=== PATIENT | female | born 1990 | race Caucasian/White ===

== ENCOUNTER 2019-03-23 22:11 | Emergency (ER) | payer OTHER ==
[~2019-03-23] VITALS: Ht 157.5 cm; Wt 113.4 kg
[2019-03-23] MEDS ORDERED: DILTIAZEM ER180 M2 PO (22:26)
[2019-03-23] MEDS ORDERED: DULOXETINE HCL60 MG PO (22:27)
[2019-03-23] MEDS ORDERED: ROBAXIN 750 MG750 MG PO (22:27)
[2019-03-23 22:39] LABS: ABSOLUTE BASOPHILS 0.1 thou/uL (0.0-0.2); ABSOLUTE EOSINOPHILS 0.2 thou/uL (0.0-0.7); ABSOLUTE MONOCYTES 0.9 thou/uL (0.0-1.2); ABSOLUTE NEUTROPHILS 5.8 thou/uL (1.6-8.1); BASOPHILS 0.9 %; EOSINOPHILS 1.6 %; HEMATOCRIT 35.9 % (37.0-47.0); HEMOGLOBIN 11.9 gm/dL (12.0-15.0); LYMPHOCYTES 30.2 %; MCH 27.3 pg (26.0-34.0); MCHC 33.3 g/dL (28.0-37.0); MCV 82.2 fL (80.0-100.0); MONOCYTES 8.9 %; MPV 8.4 fl. (7.2-11.1); NUCLEATED RBCS 0 /100WBC; PLATELET COUNT* 234 thou/uL (150-400); POLYS 58.4 %; RBC 4.37 mil/uL (4.20-5.00); RDW-CV 14.2 % (10.5-14.5)
[2019-03-23 22:43] LABS: URINE BILIRUBIN NEGATIVE (Negative); URINE BLOOD 2+ (Negative); URINE CLARITY SL CLOUDY; URINE COLOR YELLOW; URINE GLUCOSE-RANDOM NEGATIVE (Negative); URINE KETONES NEGATIVE (Negative); URINE LEUKOCYTES-REFLEX NEGATIVE (Negative); URINE NITRITE-REFLEX NEGATIVE (Negative); URINE PROTEIN NEGATIVE (Negative); URINE SPECIFIC GRAVITY 1.015 (1.005-1.030); URINE UROBILINOGEN 0.2 E.U./dl (0.2-1.0)
[2019-03-23 22:48] LABS: CALCIUM 9.2 mg/dL (8.5-10.1); CREATININE 0.9 mg/dL (0.6-1.3); POTASSIUM 3.8 mmol/L (3.5-5.1)
[2019-03-23 22:48] LABS: CASTS None Seen /LPF (None Seen); MUCUS 0-3 Light strn/LPF (None Seen); SQUAMOUS 0-3 Few /LPF (0-3)
[2019-03-23 22:49] LABS: AMORPHOUS PHOSPHATES Few /LPF (None Seen); BACTERIA-REFLEX None Seen /HPF (None Seen); URINE WBC-REFLEX 0-5 Rare /HPF (0-5)
[2019-03-23 22:53] LABS: ALBUMIN 3.5 g/dL (3.4-5.0); TOTAL BILIRUBIN 0.2 mg/dL (<0.1-1.0); TOTAL PROTEIN 7.4 g/dL (6.4-8.2)
[2019-03-23 23:31] VITALS: BP 165/94
== END 2019-03-23 23:32 | disposition home or self-care (01) ==
LOC: M.ERS 22:11
PROVIDERS: Emergency Medicine Emergency Medical Services
DX: N93.9 Abnormal uterine and vaginal bleeding, unspecified (principal); Z91.040 Latex allergy status

== ENCOUNTER → 2019-06-18 | Outpatient (CLI) | payer OTHER ==
[~2019-06-18] MED LIST: DILTIAZEM ER180 M2 PO; DULOXETINE HCL60 MG PO; ROBAXIN 750 MG750 MG PO
[2019-06-18 07:32] LABS: ABSOLUTE BASOPHILS 0.1 thou/uL (0.0-0.2); ABSOLUTE EOSINOPHILS 0.2 thou/uL (0.0-0.7); ABSOLUTE LYMPHOCYTES 2.7 thou/uL (0.8-5.3); ABSOLUTE MONOCYTES 0.8 thou/uL (0.0-1.2); ABSOLUTE NEUTROPHILS 6.2 thou/uL (1.6-8.1); BASOPHILS 0.9 %; EOSINOPHILS 1.8 %; HEMATOCRIT 39.5 % (37.0-47.0); MCH 26.5 pg (26.0-34.0); MCHC 32.8 g/dL (28.0-37.0); MCV 80.7 fL (80.0-100.0); MONOCYTES 8.4 %; MPV 8.2 fl. (7.2-11.1); NUCLEATED RBCS 0 /100WBC; PLATELET COUNT* 256 thou/uL (150-400); POLYS 61.9 %; RDW-CV 14.7 % (10.5-14.5)
[2019-06-18 07:42] LABS: ALBUMIN 3.8 g/dL (3.4-5.0); ALKALINE PHOSPHATASE 84 U/L (46-116); ANION GAP 10 mmol/L (7-16); SODIUM 140 mmol/L (136-145); TOTAL BILIRUBIN 0.5 mg/dL (<0.1-1.0)
[2019-06-18 07:44] LABS: BUN 11 mg/dL (7-18); CALCIUM 8.4 mg/dL (8.5-10.1); CHLORIDE 104 mmol/L (98-107); CHOLESTEROL 134 mg/dL (<200); CO2 26 mmol/L (21-32); CREATININE 0.8 mg/dL (0.6-1.3); GLUCOSE 100 mg/dL (70-99); HDL CHOLESTEROL 44 mg/dL (>40); LDL CHOLESTEROL 72 mg/dL (<100); POTASSIUM 3.5 mmol/L (3.5-5.1); SGOT 25 U/L (15-37); SGPT 49 U/L (30-65); TOTAL PROTEIN 7.8 g/dL (6.4-8.2); TRIGLYCERIDE 92 mg/dL (<150); VLDL 18 mg/dL (<40)
[2019-06-18 08:08] LABS: SERUM ASSESSMENT Clear
== END ==
LOC: M.LAB 07:08
PROVIDERS: Family Medicine
DX: Z00.00 Encounter for general adult medical examination without abnormal findings (principal)

== ENCOUNTER → 2019-06-24 | Outpatient (CLI) | payer OTHER ==
[2019-06-25 02:06] LABS: GLYCOHEMOGLOBIN (HGB A1C) 5.4 % (4.8-5.6)
== END ==
LOC: M.LAB 15:43
PROVIDERS: Family Medicine
DX: R73.9 Hyperglycemia, unspecified (principal)

== ENCOUNTER → 2019-07-27 | Outpatient (CLI) | payer OTHER ==
--- NOTE | 2019-07-27 12:30 | 2DMMODE ---
[place] [address] 2 D/M-MODE ECHOCARDIOGRAM Name: NIC SIDHU Giselle Room: [facility]#: [id number] Admission: 07/27/19 Attend Phys: Onur Baxter MD Discharge: Date of : 89 Date of Service: 07/27/19 1230 Report #: [id number] THIS REPORT FOR: cc: Casey Morel Vincent R. DO Holkins,Jamaal Watkins MD [facility] ~ APPROVED REPORT Study performed: 07/27/2019 09:53:50 EXAM: Comprehensive 2D, Doppler, and color-flow Echocardiogram BSA: 2.14 HR: 88 bpm BP: 128/80 mmHg Other Information Study Quality: Fair Indications Palpitations pvc 2D Dimensions IVSd: 11.40 (7-11mm) LVOT Diam: 21.70 (18-24mm) LVDd: 43.78 mm PWd: 11.31 (7-11mm) Ascending Ao: 29.71 (22-36mm) LVDs: 27.97 (25-40mm) Aortic Root: 28.21 mm Volumes Left Atrial Volume (Systole) LA ESV Index: 19.80 mL/m2 Aortic Valve AoV Peak Ru.: 1.25 m/s AO Peak Gr.: 6.30 mmHg LVOT Max P.51 mmHg AO Mean Gr.: 3.67 mmHg LVOT Mean P.75 mmHg LVOT Max V: 0.94 m/s AO V2 VTI: 22.35 cm LVOT Mean V: 0.61 m/s DAVID (VTI): 3.07 cm2 LVOT V1 VTI: 18.54 cm Mitral Valve E/A Ratio: 1.03 [place] [address] 2 D/M-MODE ECHOCARDIOGRAM Name: NIC SIDHU Room: [facility]#: [id number] Admission: 07/27/19 Attend Phys: Onur Baxter MD Discharge: Date of : 89 Date of Service: 07/27/19 1230 Report #: [id number] MV Decel. Time: 203.05 ms MV E Max Ru.: 0.68 m/s MV PHT: 58.88 ms MVA (PHT): 3.74 cm2 TDI E/Lateral E': 4.25 E/Medial E': 4.25 Medial E' Ru.: 0.16 m/s Lateral E' Ru.: 0.16 m/s Pulmonary Valve PV Peak Ru.: 0.92 m/s PV Peak Gr.: 3.38 mmHg Left Ventricle The left ventricle is normal size. There is normal LV segmental wall motion. There is normal left ventricular wall thickness. Left ventricular systolic function is normal. The left ventricular ejection fraction is within the normal range. LVEF is 55-60%. The left ventricular diastolic function is normal. Right Ventricle The right ventricle is normal size. The right ventricular systolic function is normal. Atria The left atrium size is normal. The right atrium size is normal. Aortic Valve The aortic valve is normal in structure. No aortic regurgitation is present. There is no aortic valvular stenosis. Mitral Valve The mitral valve is normal in structure. There is no mitral valve regurgitation noted. No evidence of mitral valve stenosis. Tricuspid Valve The tricuspid valve is normal in structure. There is no tricuspid valve regurgitation noted. Pulmonic Valve The pulmonary valve is normal in structure. There is no pulmonic valvular regurgitation. Great Vessels The aortic root is normal in size. IVC is [place] [address] 2 D/M-MODE ECHOCARDIOGRAM Name: NIC SIDHU Room: [facility]#: [id number] Admission: 07/27/19 Attend Phys: Onur Baxter MD Discharge: Date of : 89 Date of Service: 07/27/19 1230 Report #: [id number] collapses >50% with inspiration. Pericardium There is no pericardial effusion. <Conclusion> The left ventricle is normal size. There is normal left ventricular wall thickness. Left ventricular systolic function is normal. The left ventricular ejection fraction is within the normal range. LVEF is 55-60%. The left ventricular diastolic function is normal. The right ventricle is normal size. The left atrium size is normal. The aortic valve is normal in structure. The mitral valve is normal in structure. The tricuspid valve is normal in structure. IVC is normal in size and collapses >50% with inspiration. There is no pericardial effusion. There is normal LV segmental wall motion. <ELECTRONICALLY SIGNED> By: Jamaal Vargas MD, FACC 07/27/19 1230 1230 1230 Jamaal Vargas MD, FACC /INF
== END ==
LOC: M.CRD 10:00
DX: I49.3 Ventricular premature depolarization (principal)

== ENCOUNTER 2020-01-14 22:23 | Emergency (ER) | payer OTHER ==
[~2020-01-14] VITALS: Ht 157.5 cm; Wt 122.5 kg
[2020-01-14] MEDS ORDERED: BUSPIRONE HCL10 MG PO (22:35)
[2020-01-14] MEDS ORDERED: OMEPRAZOLE40 MG PO (22:35)
[2020-01-14] MEDS ORDERED: CLARITIN10 M2 PO (22:35)
[2020-01-14 23:16] LABS: URINE BILIRUBIN NEGATIVE (Negative); URINE BLOOD NEGATIVE (Negative); URINE CLARITY CLEAR; URINE COLOR YELLOW; URINE GLUCOSE-RANDOM NEGATIVE (Negative); URINE KETONES TRACE (Negative); URINE LEUKOCYTES-REFLEX NEGATIVE (Negative); URINE NITRITE-REFLEX NEGATIVE (Negative); URINE PROTEIN TRACE (Negative); URINE SPECIFIC GRAVITY >= 1.030 (1.005-1.030); URINE UROBILINOGEN 0.2 E.U./dl (0.2-1.0)
[2020-01-14 23:34] LABS: ABSOLUTE BASOPHILS 0.1 thou/uL (0.0-0.2); ABSOLUTE EOSINOPHILS 0.2 thou/uL (0.0-0.7); ABSOLUTE LYMPHOCYTES 2.9 thou/uL (0.8-5.3); ABSOLUTE MONOCYTES 0.7 thou/uL (0.0-1.2); ABSOLUTE NEUTROPHILS 6.1 thou/uL (1.6-8.1); BASOPHILS 0.9 %; HEMATOCRIT 35.2 % (37.0-47.0); HEMOGLOBIN 11.9 gm/dL (12.0-15.0); LYMPHOCYTES 28.7 %; MCH 27.2 pg (26.0-34.0); MCHC 33.9 g/dL (28.0-37.0); MCV 80.4 fL (80.0-100.0); MONOCYTES 7.3 %; MPV 8.3 fl. (7.2-11.1); NUCLEATED RBCS 0 /100WBC; PLATELET COUNT* 246 thou/uL (150-400); POLYS 61.1 %; RBC 4.38 mil/uL (4.20-5.00); RDW-CV 14.9 % (10.5-14.5)
[2020-01-14 23:44] LABS: CALCIUM 8.6 mg/dL (8.5-10.1); CREATININE 1.3 mg/dL (0.6-1.3); POTASSIUM 3.1 mmol/L (3.5-5.1)
[2020-01-14 23:48] LABS: INR 0.9; PROTIME 9.7 Seconds (9.20-11.50)
[2020-01-14 23:55] LABS: ALBUMIN 3.5 g/dL (3.4-5.0); MAGNESIUM 1.8 mg/dL (1.8-2.4); TOTAL BILIRUBIN 0.3 mg/dL (<0.1-1.0); TOTAL PROTEIN 7.4 g/dL (6.4-8.2)
[2020-01-15] MEDS ORDERED: XANAX 1 MG TABLE1 MG PO (01:29)
[2020-01-15] MEDS ORDERED: PROAIR HFA8.5 GM INH (01:29)
[2020-01-15 01:54] VITALS: BP 157/90
--- NOTE | 2020-01-16 10:38 | EKG ---
[place] [address] ELECTROCARDIOGRAM REPORT Name: NIC SIDHU Room: [facility]#: [id number] Admission: 01/14/20 Attend Phys: Discharge: 01/15/20 Date of : 89 Date of Service: 01/14/20 2315 Report #: [id number] THIS REPORT FOR: //name// [facility] ED Test Date: 2020-01-14 Test Time: 23:15:29 Pat Name: NIC SIDHU Department: Room: Gender: [employer]: : 1990 Requested By: Darleen Sheridan Order Number: [id number] MD: Onur Baxter Measurements Intervals [place] Rate: 93 P: 51 IA: 196 QRS: 71 QRSD: 110 T: 52 QT: 351 QTc: 437 Interpretive Statements Sinus rhythm No previous ECG available for comparison Electronically Signed On 01-16-2020 10:38:38 CDT by Onur Baxter [email or web address] <ELECTRONICALLY SIGNED> By: Onur Baxter MD, [facility] 01/16/20 1038 2315 14 Onur Baxter MD, FACC /EPI
== END 2020-01-15 01:54 | disposition home or self-care (01) ==
LOC: M.ERS 22:23
PROVIDERS: Emergency Medicine
DX: F41.9 Anxiety disorder, unspecified (principal); R09.81 Nasal congestion; R07.89 Other chest pain; Z20.828 Contact with and (suspected) exposure to other viral communicable diseases; Z91.040 Latex allergy status

== ENCOUNTER 2020-03-05 02:57 | Emergency (ER) | payer OTHER ==
[~2020-03-05] VITALS: Ht 157.5 cm; Wt 122.5 kg
[~2020-03-05 02:57] MED LIST changes: +BUSPIRONE HCL10 MG PO; +CLARITIN10 M2 PO; +OMEPRAZOLE40 MG PO; +PROAIR HFA8.5 GM INH; +XANAX 1 MG TABLE1 MG PO
[2020-03-05 05:00] VITALS: BP 147/91
== END 2020-03-05 05:00 | disposition home or self-care (01) ==
LOC: M.ERS 02:57
DX: J06.9 Acute upper respiratory infection, unspecified (principal); Z20.828 Contact with and (suspected) exposure to other viral communicable diseases; Z79.899 Other long term (current) drug therapy; Z91.040 Latex allergy status

== ENCOUNTER 2020-06-03 06:25 | Emergency (ER) | payer OTHER ==
[~2020-06-03] VITALS: Ht 157.5 cm; Wt 122.5 kg
[2020-06-03] MEDS ORDERED: CYMBALTA60 MG PO (06:36)
[2020-06-03] MEDS ORDERED: BUSPIRONE HCL10 MG PO (06:36)
[2020-06-03] MEDS ORDERED: ZOFRAN ODT4 MG PO (06:41)
[2020-06-03 06:42] VITALS: BP 167/79
== END 2020-06-03 08:01 | disposition home or self-care (01) ==
LOC: M.ERS 06:25
DX: F19.239 Other psychoactive substance dependence with withdrawal, unspecified (principal); R11.0 Nausea; Z91.040 Latex allergy status

== ENCOUNTER → 2020-07-22 | Outpatient (CLI) | payer OTHER ==
[~2020-07-22] MED LIST changes: +CYMBALTA60 MG PO; +ZOFRAN ODT4 MG PO
[2020-07-22 08:04] LABS: ABSOLUTE BASOPHILS 0.1 thou/uL (0.0-0.2); ABSOLUTE EOSINOPHILS 0.1 thou/uL (0.0-0.7); ABSOLUTE LYMPHOCYTES 3.2 thou/uL (0.8-5.3); ABSOLUTE MONOCYTES 0.7 thou/uL (0.0-1.2); ABSOLUTE NEUTROPHILS 5.5 thou/uL (1.6-8.1); BASOPHILS 0.7 %; EOSINOPHILS 1.1 %; HEMATOCRIT 33.8 % (37.0-47.0); HEMOGLOBIN 11.1 gm/dL (12.0-15.0); MCH 25.1 pg (26.0-34.0); MCHC 32.7 g/dL (28.0-37.0); MONOCYTES 7.6 %; MPV 7.6 fl. (7.2-11.1); NUCLEATED RBCS 0 /100WBC; PLATELET COUNT* 274 thou/uL (150-400); POLYS 57.6 %; RDW-CV 15.2 % (10.5-14.5); WBC 9.6 thou/uL (4.0-11.0)
[2020-07-22 08:24] LABS: URINE BILIRUBIN NEGATIVE (Negative); URINE BLOOD 1+ (Negative); URINE CLARITY CLEAR; URINE COLOR YELLOW; URINE GLUCOSE-RANDOM NEGATIVE (Negative); URINE KETONES NEGATIVE (Negative); URINE LEUKOCYTES-REFLEX NEGATIVE (Negative); URINE NITRITE-REFLEX NEGATIVE (Negative); URINE PROTEIN NEGATIVE (Negative); URINE SPECIFIC GRAVITY >= 1.030 (1.005-1.030); URINE UROBILINOGEN 0.2 E.U./dl (0.2-1.0)
[2020-07-22 08:42] LABS: MUCUS 4-6 Moderate strn/LPF (None Seen); SQUAMOUS 4-10 Moderate /LPF (0-3)
[2020-07-22 08:43] LABS: BACTERIA-REFLEX 1-9 Few /HPF (None Seen); CASTS None Seen /LPF (None Seen); CRYSTALS None Seen /LPF (None Seen); URINE RBC 3-10 Few /HPF (0-2); URINE WBC-REFLEX 0-5 Rare /HPF (0-5)
[2020-07-22 09:06] LABS: ESR (SEDRATE) 29 mm/hr (0-20)
[2020-07-22 09:39] LABS: ALBUMIN 3.7 g/dL (3.4-5.0); ALKALINE PHOSPHATASE 87 U/L (46-116); ANION GAP 17 mmol/L (7-16); BUN 12 mg/dL (7-18); CALCIUM 8.7 mg/dL (8.5-10.1); CHLORIDE 102 mmol/L (98-107); CHOLESTEROL 156 mg/dL (<200); CO2 21 mmol/L (21-32); CREATININE 0.8 mg/dL (0.6-1.3); GLUCOSE 91 mg/dL (70-99); HDL CHOLESTEROL 37 mg/dL (>40); LDL CHOLESTEROL 95 mg/dL (<100); POTASSIUM 3.1 mmol/L (3.5-5.1); SGOT 21 U/L (15-37); SGPT 34 U/L (30-65); SODIUM 140 mmol/L (136-145); TC:HDL 4.2 Ratio (Not establshd); TOTAL BILIRUBIN 0.3 mg/dL (<0.1-1.0); TOTAL PROTEIN 7.5 g/dL (6.4-8.2); TRIGLYCERIDE 122 mg/dL (<150); VLDL 24 mg/dL (<40)
[2020-07-22 10:10] LABS: SERUM ASSESSMENT Clear
[2020-07-23 03:06] LABS: GLYCOHEMOGLOBIN (HGB A1C) 5.4 % (4.8-5.6)
[2020-07-24 18:06] LABS: ANA INTERPRETATION Negative (())
== END ==
LOC: M.LAB 07:34
PROVIDERS: ATTEND Family Medicine
DX: Z13.1 Encounter for screening for diabetes mellitus (principal); Z00.00 Encounter for general adult medical examination without abnormal findings; M25.50 Pain in unspecified joint; R60.9 Edema, unspecified

== ENCOUNTER → 2020-12-21 | Outpatient (CLI) | payer OTHER ==
[2020-12-21 08:18] LABS: ABSOLUTE BASOPHILS 0.1 thou/uL (0.0-0.2); ABSOLUTE EOSINOPHILS 0.1 thou/uL (0.0-0.7); ABSOLUTE LYMPHOCYTES 2.8 thou/uL (0.8-5.3); ABSOLUTE MONOCYTES 0.7 thou/uL (0.0-1.2); ABSOLUTE NEUTROPHILS 5.2 thou/uL (1.6-8.1); BASOPHILS 0.7 %; EOSINOPHILS 1.1 %; LYMPHOCYTES 31.6 %; MCH 25.6 pg (26.0-34.0); MCHC 33.2 g/dL (28.0-37.0); MCV 77.3 fL (80.0-100.0); MONOCYTES 7.7 %; MPV 7.7 fl. (7.2-11.1); NUCLEATED RBCS 0 /100WBC; PLATELET COUNT* 236 thou/uL (150-400); POLYS 58.9 %; RBC 4.27 mil/uL (4.20-5.00); RDW-CV 15.6 % (10.5-14.5); WBC 8.8 thou/uL (4.0-11.0)
[2020-12-21 08:53] LABS: % SATURATION 10 % (20-39); IRON 32 ug/dL (50-175)
[2020-12-21 09:31] LABS: ESR (SEDRATE) 15 mm/hr (0-20)
== END ==
LOC: M.LAB 07:57
PROVIDERS: ATTEND Family Medicine
DX: E87.6 Hypokalemia (principal); D50.9 Iron deficiency anemia, unspecified

== ENCOUNTER → 2021-01-11 | Outpatient (CLI) | payer OTHER | LOC: M.MRI 12-13 11:00 | PROVIDERS: ATTEND Family Medicine | DX: M94.262 Chondromalacia, left knee (principal); M94.261 Chondromalacia, right knee; M25.462 Effusion, left knee; M25.461 Effusion, right knee ==